=== PATIENT | female | born 1955 | race Caucasian/White ===

== ENCOUNTER 2021-11-17 09:39 | Inpatient (IN) ==
--- NOTE | 2021-11-17 10:30 | XRay Report ---
XR chest 1V portable CLINICAL HISTORY: cough, sob TECHNIQUE: Single frontal radiograph of the chest was obtained. Comparison: Comparison is made to chest radiograph 11/09/2021 FINDINGS: No lines and tubes are seen. The cardiomediastinal silhouette is normal. Faint airspace opacities are in the left lower lung. No evidence of pleural effusion or pneumothorax. IMPRESSION: Faint airspace opacities in the left lower lung, new from prior exam, may represent atelectasis, pneu monia, and/or aspiration. ACT 112: Negative or not required by law. Electronically signed by: Mich Raymond M.D. 11/17/2021 10:28 AM
[2021-11-17 11:00] LABS: Basophils # (auto) 0.01 K/uL (0-0.2); Basophils % (auto) 0.3 %; Eosinophils # (auto) 0.01 K/uL (0-0.5); Eosinophils % (auto) 0.3 %; Hematocrit (blood only) 31.3 % (37-47); Immature Granulocytes # (auto) 0.02 K/uL (0.00-0.02); Immature Granulocytes % (auto) 0.6 %; Lymphocytes # (auto) 0.24 K/uL (1.2-3.4); Lymphocytes % (auto) 6.7 %; Mean Corpuscular Hemoglobin 34.4 pg (25-34); Mean Corpuscular Hgb Conc 35.1 g/dL (32-36); Mean Corpuscular Volume 97.8 fL (80-100); Mean Platelet Volume 10.2 fL (7.4-10.4); Monocytes # (auto) 0.17 K/uL (0.11-0.59); Monocytes % (auto) 4.8 %; Neutrophils # (auto) 3.11 K/uL (1.4-6.5); Neutrophils % (auto) 87.3 %; Platelet Count 191 K/uL (130-400); RDW Coefficient of Variation 14.6 % (11.5-14.5); RDW Standard Deviation 52.1 fL (36.4-46.3); White Blood Count 3.56 K/uL (4.8-10.8)
[2021-11-17 11:13] LABS: D Dimer 3080 ug/L FEU (0-500)
[2021-11-17 11:30] LABS: Influenza A virus by PCR Negative (Neg); Influenza B virus by PCR Negative (Neg); RSV by PCR Negative (Neg); SARS CoV2 RNA(COVID-19) InHosp NEGATIVE (Negative)
[2021-11-17 11:33] LABS: Albumin Globulin Ratio 0.8 (0.9-2); Albumin Level 3.4 gm/dl (3.4-5.0); Bilirubin,Total 0.6 mg/dl (0.2-1.0); Calcium 8.6 mg/dl (8.5-10.1); Globulin 4.2 gm/dl (2.5-4.0); Total Protein 7.6 gm/dl (6.0-8.3)
[2021-11-17] MEDS ORDERED: SODIUM CHLORIDE 0.9% 1000ML 1,000 ML IV ONE (11:38)
--- NOTE | 2021-11-17 11:45 | Emergency Department Note ---
History of Present Illness General Chief complaint: Shortness of Breath/Dyspnea Stated complaint: SOB, NO APPETITE, TIREDNESS Time Seen by Provider: 11/17/21 09:53 Source: patient Mode of arrival: ambulatory Limitations: no limitations History of Present Illness Maximum Pain Intensity: 8 This patient is a 66-year-old female who presents to the emergency department for evaluation of multiple symptoms. Patient states that she has metastatic breast cancer and is currently undergoing chemotherapy. She completed a course of radiation about 2 weeks ago. Patient is having symptoms that she feels may be side effects of one of her chemotherapy medications. She reports cough, fevers, pain in the left side of her back/chest, shortness of breath and feeling fatigued. She is unable to tell me when the symptoms started, just states it was "after radiation." She states it does hurt to take a deep breath. She rat es her discomfort an 8/10. She has been vaccinated for COVID-19 and denies any recent sick contacts. She denies any abdominal pain or vomiting. Home Medications Medication Instructions Recorded Confirmed Type amoxicillin 875 mg-potassium 1 tab PO BID #20 tab 11/09/21 11/17/21 Rx clavulanate 125 mg tablet Allergies Allergy/AdvReac Type Severity Reaction Status Date / Time No Known Allergies Allergy Unknown Verified 11/17/21 15:12 Past Med/Surg History Medical History Bilateral breast cancer left breast 2007 "different type of cancer currently in the Right breast" Breast cancer metastasized to bone pt unaware? 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 Heartburn Mnire's disease Osteoarthritis Vertigo hx Surgical History H/O right breast biopsy (~11/2020) positive ("different kind of cancer than the left breast") follows with [facility] History of colonoscopy Hx of adenoidectomy Hx of tonsillectomy S/P lumpectomy, left breast (~2007) with lymph node removal Family History Other Family history non-contributory No family history of adverse response to anesthesia Social History Smoking Status: Never smoker Tobacco Type: Cigarettes Age Started Using Tobacco: 34; Age Quit Using Tobacco: 65; packs per day: 0.05; Years Smoked: 21; Second Hand Exposure: Yes; Hx Alcohol Use: No Hx Substance Use: No Preferred Language: Malagasy Communication Ability: Effective Visual Impairment: No Limitations Hearing Ability: Hard of Hearing Cable Maintainer Required: No Beliefs That Will Affect Care: None marital status: Current Living Situation: Family current occupational status: retired current occupation: [employer] How many Children do You have: 3 Feels Safe at Home: Yes Childhood Exposure to Second-Hand Smoke: Yes Diet Comment: healthy choices caffeine: No during the past year weight has: decreased > 10 lbs Dental Care, Regularly: Yes Physical Activity Frequency: Daily Seatbelt Use: always Sunscreen Use: Yes Assistive Devices: Glasses Review of Systems A total of 10 systems reviewed and were otherwise negative Physical Exam Vital Signs Vital Signs - 24 hr 11/17/21 09:41 11/17/21 09:43 11/17/21 09:57 Temperature 36.5 C Temperature Source Oral Pulse Rate 100 H 101 H Pulse Rate [Apical] Pulse Rate from SpO2 Sensor 101 H Respiratory Rate 18 23 Blood Pressure 111/70 Blood Pressure [Right Arm] Blood Pressure Mean 83 Blood Pressure Mean [Right Arm] Pulse Oximetry 97 95 Oxygen Delivery Method Room Air Room Air Sepsis Recent Fever Within 48 Hours Yes Sepsis New/Unexplained Change in Mental Status N/A Sepsis Action Taken by Nursing No Action Required 11/17/21 10:00 11/17/21 10:03 11/17/21 10:10 Temperature Temperature Source Pulse Rate 92 H 99 H 92 H Pulse Rate [Apical] Pulse Rate from SpO2 Sensor 92 H 98 H 92 H Respiratory Rate 21 14 16 Blood Pressure 119/72 Blood Pressure [Right Arm] Blood Pressure Mean 87 Blood Pressure Mean [Right Arm] Pulse Oximetry 94 94 97 Oxygen Delivery Method Sepsis Recent Fever Within 48 Hours Sepsis New/Unexplained Change in Mental Status Sepsis Action Taken by Nursing 11/17/21 10:20 11/17/21 10:30 11/17/21 10:40 Temperature Temperature Source Pulse Rate 93 H 92 H 88 Pulse Rate [Apical] Pulse Rate from SpO2 Sensor 92 H 92 H 88 Respiratory Rate 23 20 23 Blood Pressure 112/75 Blood Pressure [Right Arm] Blood Pressure Mean 87 Blood Pressure Mean [Right Arm] Pulse Oximetry 96 97 95 Oxygen Delivery Method Sepsis Recent Fever Within 48 Hours Sepsis New/Unexplained Change in Mental Status Sepsis Action Taken by Nursing 11/17/21 10:50 11/17/21 11:00 11/17/21 11:10 Temperature Temperature Source Pulse Rate 82 82 82 Pulse Rate [Apical] Pulse Rate from SpO2 Sensor 82 81 82 Respiratory Rate 21 19 21 Blood Pressure 111/65 Blood Pressure [Right Arm] Blood Pressure Mean 80 Blood Pressure Mean [Right Arm] Pulse Oximetry 95 96 96 Oxygen Delivery Method Sepsis Recent Fever Within 48 Hours Sepsis New/Unexplained Change in Mental Status Sepsis Action Taken by Nursing 11/17/21 11:20 11/17/21 11:30 11/17/21 11:40 Temperature Temperature Source Pulse Rate 79 83 80 Pulse Rate [Apical] Pulse Rate from SpO2 Sensor 79 83 80 Respiratory Rate 19 20 19 Blood Pressure 108/73 Blood Pressure [Right Arm] Blood Pressure Mean 84 Blood Pressure Mean [Right Arm] Pulse Oximetry 96 96 97 Oxygen Delivery Method Sepsis Recent Fever Within 48 Hours Sepsis New/Unexplained Change in Mental Status Sepsis Action Taken by Nursing 11/17/21 11:50 11/17/21 12:00 11/17/21 12:10 Temperature Temperature Source Pulse Rate 76 83 80 Pulse Rate [Apical] Pulse Rate from SpO2 Sensor 76 83 79 Respiratory Rate 21 19 15 Blood Pressure 120/72 Blood Pressure [Right Arm] Blood Pressure Mean 88 Blood Pressure Mean [Right Arm] Pulse Oximetry 97 96 99 Oxygen Delivery Method Sepsis Recent Fever Within 48 Hours Sepsis New/Unexplained Change in Mental Status Sepsis Action Taken by Nursing 11/17/21 12:20 11/17/21 13:27 11/17/21 13:28 Temperature Temperature Source Pulse Rate 81 85 Pulse Rate [Apical] Pulse Rate from SpO2 Sensor 80 90 85 Respiratory Rate 17 Blood Pressure 120/66 Blood Pressure [Right Arm] Blood Pressure Mean 84 Blood Pressure Mean [Right Arm] Pulse Oximetry 100 99 99 Oxygen Delivery Method Sepsis Recent Fever Within 48 Hours Sepsis New/Unexplained Change in Mental Status Sepsis Action Taken by Nursing 11/17/21 13:30 11/17/21 13:40 11/17/21 13:50 Temperature Temperature Source Pulse Rate 86 86 83 Pulse Rate [Apical] Pulse Rate from SpO2 Sensor 86 87 84 Respiratory Rate 22 15 19 Blood Pressure 121/84 Blood Pressure [Right Arm] Blood Pressure Mean 96 Blood Pressure Mean [Right Arm] Pulse Oximetry 98 99 99 Oxygen Delivery Method Sepsis Recent Fever Within 48 Hours Sepsis New/Unexplained Change in Mental Status Sepsis Action Taken by Nursing 11/17/21 13:58 11/17/21 14:00 11/17/21 14:10 Temperature Temperature Source Pulse Rate 83 83 Pulse Rate [Apical] 80 Pulse Rate from SpO2 Sensor 83 82 Respiratory Rate 22 22 28 H Blood Pressure 117/75 Blood Pressure [Right Arm] 121/84 Blood Pressure Mean 89 Blood Pressure Mean [Right Arm] 96 Pulse Oximetry 99 99 99 Oxygen Delivery Method Room Air Sepsis Recent Fever Within 48 Hours Sepsis New/Unexplained Change in Mental Status Sepsis Action Taken by Nursing 11/17/21 14:20 Temperature Temperature Source Pulse Rate 84 Pulse Rate [Apical] Pulse Rate from SpO2 Sensor 83 Respiratory Rate 13 Blood Pressure Blood Pressure [Right Arm] Blood Pressure Mean Blood Pressure Mean [Right Arm] Pulse Oximetry 97 Oxygen Delivery Method Sepsis Recent Fever Within 48 Hours Sepsis New/Unexplained Change in Mental Status Sepsis Action Taken by Nursing VITALS: Vitals are noted on the nurse's note and reviewed by myself. GENERAL: This is a 66-year-old female, in no acute distress, well-developed well-nourished. SKIN: The skin was without rashes. EARS: External auditory canals clear, tympanic membranes pearly fisher without erythema or effusion bilaterally. EYES: Pupils equal round and reactive to light and accommodation. MOUTH: Mucous membranes moist. Tonsils are not enlarged. Pharynx without erythema or exudate. NECK: Supple without nuchal rigidity. No lymphadenopathy. HEART: Regular rate and rhythm without murmurs gallops or rubs. LUNGS: Clear to auscultation bilaterally without wheezes, rales or rhonchi. No retractions or accessory muscle use. ABDOMEN: Positive bowel sounds x 4. Soft, nontender to palpation. NEURO: Patient was alert and oriented to person place and time. Course Administered Medications Discontinued Medications Sodium Chloride (Nss 1000ml) 1,000 mls @ 999 mls/hr IV .Q1H1M ONE Stop: 11/17/21 12:38 Last Admin: 11/17/21 12:15 Dose: 999 mls/hr Documented by: [id number] Cefepime HCl (Maxipime) 2,000 mg in 20 mls @ 5 mls/min IV NOW STA; Protocol Stop: 11/17/21 13:54 Last Admin: 11/17/21 14:00 Dose: 5 mls/min Documented by: [id number] Ioversol (Optiray 320 125ml) 118 ml IV ONCE ONE Stop: 11/17/21 12:34 Last Admin: 11/17/21 12:36 Dose: 118 ml Documented by: [id number] Metronidazole (Metronidazole 500 Mg Tab) 500 mg PO NOW STA Stop: 11/17/21 13:52 Last Admin: 11/17/21 14:00 Dose: 500 mg Documented by: [id number] Medical Decision Making Differential Diagnosis Cardiac ischemia, aortic dissection, pulmonary embolism, pneumothorax, pneumonia, pericarditis, myocarditis, esophageal rupture, GERD, cholecystitis, pancreatitis, musculoskeletal, as well as other pathologies. Home Medications Current Medication List: was personally reviewed by me Laboratory Data Attestation: I reviewed the patient's lab results. Result diagrams: 11/17/21 10:05 11/17/21 10:05 Lab Results 11/17/21 11/17/21 11/17/21 Range/Units 10:05 10:05 10:05 WBC 3.56 L (4.8-10.8) K/uL RBC 3.20 L (4.2-5.4) M/uL Hgb 11.0 L (12.0-16.0) g/dL Hct 31.3 L (37-47) % MCV 97.8 (80-100) fL MCH 34.4 H (25-34) pg MCHC 35.1 (32-36) g/dL RDW Std Deviation 52.1 H (36.4-46.3) fL RDW Coeff of Royer 14.6 H (11.5-14.5) % Plt Count 191 (130-400) K/uL MPV 10.2 (7.4-10.4) fL Immature Gran % (Auto) 0.6 % Neut % (Auto) 87.3 % Lymph % (Auto) 6.7 % [place] % (Auto) 4.8 % Eos % (Auto) 0.3 % Baso % (Auto) 0.3 % Neut # (Auto) 3.11 (1.4-6.5) K/uL Lymph # (Auto) 0.24 L (1.2-3.4) K/uL [place] # (Auto) 0.17 (0.11-0.59) K/uL Eos # (Auto) 0.01 (0-0.5) K/uL Baso # (Auto) 0.01 (0-0.2) K/uL Immature Gran # (Auto) 0.02 (0.00-0.02) K/uL D-Dimer 3080 H* (0-500) ug/L FEU Sodium (136-145) mmol/L Potassium (3.5-5.1) mmol/L Chloride (98-107) mmol/L Carbon Dioxide (21-32) mmol/L Anion Gap (3-11) BUN (6-23) mg/dl Creatinine (0.6-1.2) mg/dl Est Cr Clr Drug Dosing ml/min Est GFR ( Amer) ml/min Est GFR (Non-Af Amer) ml/min BUN/Creatinine Ratio (10-20) Glucose (70-99(Fasting)) mg/dl Calcium (8.5-10.1) mg/dl Total Bilirubin (0.2-1.0) mg/dl AST (13-39) U/L ALT (7-52) U/L Alkaline Phosphatase (34-104) U/L Troponin I High Sens 6.2 (0-14) pg/ml Total Protein (6.0-8.3) gm/dl Albumin (3.4-5.0) gm/dl Globulin (2.5-4.0) gm/dl Albumin/Globulin Ratio (0.9-2) SARS-CoV-2 (PCR) (Negative) Influenza Type A (PCR) (Neg) Influenza Type B (PCR) (Neg) RSV (RT-PCR) (Neg) 11/17/21 11/17/21 Range/Units 10:05 10:10 WBC (4.8-10.8) K/uL RBC (4.2-5.4) M/uL Hgb (12.0-16.0) g/dL Hct (37-47) % MCV (80-100) fL MCH (25-34) pg MCHC (32-36) g/dL RDW Std Deviation (36.4-46.3) fL RDW Coeff of Royer (11.5-14.5) % Plt Count (130-400) K/uL MPV (7.4-10.4) fL Immature Gran % (Auto) % Neut % (Auto) % Lymph % (Auto) % [place] % (Auto) % Eos % (Auto) % Baso % (Auto) % Neut # (Auto) (1.4-6.5) K/uL Lymph # (Auto) (1.2-3.4) K/uL [place] # (Auto) (0.11-0.59) K/uL Eos # (Auto) (0-0.5) K/uL Baso # (Auto) (0-0.2) K/uL Immature Gran # (Auto) (0.00-0.02) K/uL D-Dimer (0-500) ug/L FEU Sodium 133 L (136-145) mmol/L Potassium 3.0 L (3.5-5.1) mmol/L Chloride 97 L (98-107) mmol/L Carbon Dioxide 25 (21-32) mmol/L Anion Gap 11 (3-11) BUN 15 (6-23) mg/dl Creatinine 0.80 (0.6-1.2) mg/dl Est Cr Clr Drug Dosing 55.8 ml/min Est GFR ( Amer) 87.8 ml/min Est GFR (Non-Af Amer) 75.8 ml/min BUN/Creatinine Ratio 18.8 (10-20) Glucose 158 H (70-99(Fasting)) mg/dl Calcium 8.6 (8.5-10.1) mg/dl Total Bilirubin 0.6 (0.2-1.0) mg/dl AST 44 H (13-39) U/L ALT 50 (7-52) U/L Alkaline Phosphatase 86 (34-104) U/L Troponin I High Sens (0-14) pg/ml Total Protein 7.6 (6.0-8.3) gm/dl Albumin 3.4 (3.4-5.0) gm/dl Globulin 4.2 H (2.5-4.0) gm/dl Albumin/Globulin Ratio 0.8 L (0.9-2) SARS-CoV-2 (PCR) NEGATIVE (Negative) Influenza Type A (PCR) Negative (Neg) Influenza Type B (PCR) Negative (Neg) RSV (RT-PCR) Negative (Neg) Imaging Data Attestation: I personally reviewed and interpreted this imaging study as follows: Radiologist's Impression: Chest X-Ray 11/17/21 10:16 XR chest 1V portable CLINICAL HISTORY: cough, sob TECHNIQUE: Single frontal radiograph of the chest was obtained. Comparison: Comparison is made to chest radiograph 11/09/2021 FINDINGS: No lines and tubes are seen. The cardiomediastinal silhouette is normal. Faint airspace opacities are in the left lower lung. No evidence of pleural effusion or pneumothorax. IMPRESSION: Faint airspace opacities in the left lower lung, new from prior exam, may represent atelectasis, pneumonia, and/or aspiration. ACT 112: Negative or not required by law. Electronically signed by: Mich Raymond M.D. 11/17/2021 10:28 AM Chest CTA 11/17/21 11:16 CT angio chest PE protocol CLINICAL HISTORY: left chest pain, breast ca, elevated dimer TECHNIQUE: Multidetector row helical CT of the chest was performed with angiographic protocol. Coronal and sagittal reformations were obtained. Coronal and sagittal MIPS were obtained from the axial data set and were submitted for review. Automated dose lowering techniques and/or adjustment according to patient size were utilized for this exam. CT DOSE: 256.04 mGy.cm Comparison: Comparison is made to chest 01/28/2021 FINDINGS: Lungs and pleura: Consolidation is seen in the left lower lobe. Heart and pericardium: Heart size is normal. No pericardial effusion. Vessels: No evidence of pulmonary embolism. Mediastinum and amado: Unremarkable. Chest wall and lower neck: Mild soft tissue stranding is seen in the right axilla which is unchanged from prior exam, nonspecific. Post surgical changes are noted in the left breast. Abdomen: Splenic calcifications are seen. Mild thickening of the left adrenal gland is again noted. Bones: Numerous sclerotic foci are seen in the skeleton, similar in appearance to prior exam. IMPRESSION: Right lower lobe consolidations are favored to represent aspiration or pneumonia with or without superimposed atelectasis. No evidence of pulmonary embolus is seen. ACT 112: Negative or not required by law. Electronically signed by: Mich Raymond M.D. 11/17/2021 12:44 PM MDM Narrative Continuous groundwater monitoring technician: Order was placed for continuous groundwater monitoring technician. Patient was placed on the groundwater monitoring technician. Patient was noted to be in normal sinus rhythm at an initial rate of 84 bpm. The patient is a 66-year-old female who presents today complaining of cough and flulike symptoms. Labs revealed no leukocytosis. Chest x-ray showed evidence o f pneumonia. D-dimer was found to be elevated. CT angiogram of the chest was performed and confirmed left lower lobe pneumonia with no PE seen. As patient has been on Augmentin for 8 days already, I am concerned that she will need more broad-spectrum treatment. Additionally she has been having some weakness and difficulty eating. She was given cefepime and Flagyl. The case was discussed with the [facility] service, who agreed to evaluate the patient for further care. Impression & Plan Pneumonia Discharge Plan Visit Data Chief Complaint: Shortness of Breath/Dyspnea Stated Complaint: SOB, NO APPETITE, TIREDNESS ED Provider: Manny Maradiaga ED Midlevel Provider: Karol Suarez Discharge Problem: Pneumonia Forms Stand Alone Forms: [facility] Prescriptions Prescriptions: No Action amoxicillin-pot clavulanate 875-125 mg tablet 1 tab PO BID Qty: 20 RF: 0 Referrals Referrals: Jan Chavez DO [Primary Care Provider] -
[2021-11-17 12:20] LABS: BUN Creatinine Ratio 18.8 (10-20); Creatinine Clr Calc Pharmacy 55.8 ml/min; Est GFR (African American) 87.8 ml/min; Est GFR (Non-African American) 75.8 ml/min
[2021-11-17] MEDS ORDERED: OPTIRAY 320 125ml IV ONE (12:33)
--- NOTE | 2021-11-17 12:47 | CT Scan Report ---
CT angio chest PE protocol CLINICAL HISTORY: left chest pain, breast ca, elevated dimer TECHNIQUE: Multidetector row helical CT of the chest was performed with angiographic protocol. Duarte l and sagittal reformations were obtained. Coronal and sagittal MIPS were obtained from the axial kaela a set and were submitted for review. Automated dose lowering techniques and/or adjustment according to patient size were utilized for this exam. CT DOSE: 256.04 mGy.cm Comparison: Comparison is made to chest 01/28/2021 FINDINGS: Lungs and pleura: Consolidation is seen in the left lower lobe. Heart and pericardium: Heart size is normal. No pericardial effusion. Vessels: No evidence of pulmonary embolism. Mediastinum and amado: Unremarkable. Chest wall and lower neck: Mild soft tissue stranding is seen in the right axilla which is unchanged from prior exam, nonspecific. Post surgical changes are noted in the left breast. Abdomen: Splenic calcifications are seen. Mild thickening of the left adrenal gland is again noted. Bones: Numerous sclerotic foci are seen in the skeleton, similar in appearance to prior exam. IMPRESSION: Right lower lobe consolidations are favored to represent aspiration or pneumonia with or without supe rimposed atelectasis. No evidence of pulmonary embolus is seen. ACT 112: Negative or not required by law. Electronically signed by: Mich Raymond M.D. 11/17/2021 12:44 PM
--- NOTE | 2021-11-17 13:50 | Emergency Department Note ---
ED Visit Note I have personally evaluated this patient examined her and reviewed the pertinent labs and data. I have discussed the case with Karol Suarez, the physician assistant site manager and agree with the plan. Please refer to the PA note. This patient has a cough and she is immunocompromised with recent chemo she is also finishing Augmentin for recent sinus infection seen on CT she has no significant headache at present and looks well given the fact that she has cancer and has respiratory symptoms we did a CTA and there is no PE she does have a pneumonia. Given the fact that she is immunocompromised, I do think she needs to be admitted for IV antibiotics and we have consulted hospitalist for these measures. She is not hypoxemic. .
[2021-11-17] MEDS ORDERED: CEFEPIME 2,000 MG/20 ML VIAL IV STA (13:51)
[2021-11-17] MEDS ORDERED: metroNIDAZOLE 500 MG TAB PO STA (13:51)
--- NOTE | 2021-11-17 14:56 | History & Physical Report ---
Date of Service November 17, 2021 Assessment & Plan (1) Pneumonia: Plan: CT chest showed a LLL PNA which was not captured on CXR on 11/09 when she presented with fatigue, malaise, and loss of appetite. Had been taking Augmentin since 11/09. Denies overt aspiration when eating or drinking. - Procalcitonin elevated to 1.15 - Start Zosyn to cover Pseudomonas in additional to broad usual CAP coverage - Start azithromycin for atypicals. Notably, this is one group that was not previously covered by the Augmentin - MRSA swab ordered - DuoNebs PRN (2) Diarrhea: Plan: Was treated with radiation for a slow-growing breast cancer metastasis to the rectum. Prior to radiation was incontinent, but had formed stool. Patient now reports loose/watery diarrhea. - C. diff test ordered - If negative, can consider restarting Metamucil which patient stopped on her own and/or using Imodium PRN (3) Metastatic breast cancer: Plan: Follows with Dr. Stockton at [facility]. Stopped Ibrance 2 days prior to beginning radiation therapy for her rectal metastasis. Has not restarted it as she is not certain she wants to continue any active therapy for her cancer. - Palliative care consulted - Patient is aware of palliative care/hospice and is considering this idea. (4) DVT prophylaxis: Plan: High risk - Lovenox 40 mg SQ daily History of Present Illness Primary Care Provider: Jan Chavez, 66yo F w/ hx of metastatic breast cancer who presents with LLL PNA. The patient has been undergoing chemotherapy and radiation for her breast cancer. She is following with [facility] and was on Ibrance up to the time of her radiation for a rectal metastasis. She underwent her radiation therapy for 3 weeks. She believes that her last fraction was on October 29. She has not restarted her Ibrance. She reports that she just feels "off" and without an appetite. She reports that her appetite is low and she feels like her sense of smell is causing her to feel nauseated with any eating. She was in the ER on November 09 with similar symptoms and was given Augmentin. However, in the last 3 days, she feels she has actually felt worse with more shortness of breath and cough. She also notes that she had a fever to 100.7 at home which is new for her. She did not take her Augmentin today, but otherwise has been taking it faithfully. However, she has not been taking almost any of her other medications because she feels it is not helping her body Allergies Allergy/AdvReac Type Severity Reaction Status Date / Time No Known Allergies Allergy Unknown Verified 11/17/21 15:12 Home Medications Medication Instructions Recorded Confirmed Type amoxicillin 875 mg-potassium 1 tab PO BID #20 tab 11/09/21 11/17/21 Rx clavulanate 125 mg tablet Past Med/Surg History Medical History Bilateral breast cancer left breast 2007 "different type of cancer currently in the Right breast" Breast cancer metastasized to bone pt unaware? 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 Heartburn Mnire's disease Osteoarthritis Vertigo hx Surgical History H/O right breast biopsy (~11/2020) positive ("different kind of cancer than the left breast") [facility] History of colonoscopy Hx of adenoidectomy Hx of tonsillectomy S/P lumpectomy, left breast (~2007) with lymph node removal Family History Other Family history non-contributory No family history of adverse response to anesthesia Social History Smoking Status: Former smoker Tobacco Type: Cigarettes Age Started Using Tobacco: 34; Age Quit Using Tobacco: 65; packs per day: 0.05; Years Smoked: 21; Second Hand Exposure: Yes; Do You Dip or Chew Tobacco: No; Hx Alcohol Use: No Hx Substance Use: No Preferred Language: Cypriot Communication Ability: Effective Visual Impairment: No Limitations Hearing Ability: Hard of Hearing Stripper Soft Plastic Required: No Beliefs That Will Affect Care: None marital status: Current Living Situation: Family current occupational status: retired current occupation: [email or web address] How many Children do You have: 3 Other Information That Helps Us Care for You: No Feels Safe at Home: Yes Safety Concerns: Feels Safe At This Time Childhood Exposure to Second-Hand Smoke: Yes Diet Comment: healthy choices caffeine: No during the past year weight has: decreased > 10 lbs Dental Care, Regularly: Yes Physical Activity Frequency: Daily Seatbelt Use: always Sunscreen Use: Yes Assistive Devices: Glasses Review of Systems Review of Systems: All systems reviewed & are unremarkable except as noted in HPI & below Physical Exam Constitutional: WD/WN, vitals as above Eyes: EOM intact bilaterally; no conjunctival abnormality ENMT: external ear and nose normal, oropharynx normal Neck: trachea midline, no thyromegaly normal visual inspection Respiratory: normal respiratory effort, lungs clear to auscultation no respiratory distress Cardiovascular: RRR, no murmur, no edema Gastrointestinal (Abdomen): Inspection/Auscultation: abdomen normal to inspection; abdomen not distended Musculoskeletal: no cyanosis or clubbing, extremities motor strength 5/5 Skin: no rashes, warm and dry Neurologic: moves all extremities and awake Psychiatric: Orientation: alert, oriented to person and cooperative Results & Data Results & Data ([facility]) Vital Signs (Past 12 Hours) Vital Signs Temp Pulse Pulse Resp BP BP Pulse Ox 11/17/21 14:20 84 13 97 11/17/21 14:10 83 28 H 99 11/17/21 14:00 83 22 117/75 99 11/17/21 13:58 80 22 121/84 99 11/17/21 13:50 83 19 99 11/17/21 13:40 86 15 99 11/17/21 13:30 86 22 121/84 98 11/17/21 13:28 85 120/66 99 11/17/21 13:27 99 11/17/21 12:20 81 17 100 11/17/21 12:10 80 15 99 11/17/21 12:00 83 19 120/72 96 11/17/21 11:50 76 21 97 11/17/21 11:40 80 19 97 11/17/21 11:30 83 20 108/73 96 11/17/21 11:20 79 19 96 11/17/21 11:10 82 21 96 11/17/21 11:00 82 19 111/65 96 11/17/21 10:50 82 21 95 11/17/21 10:40 88 23 95 11/17/21 10:30 92 H 20 112/75 97 11/17/21 10:20 93 H 23 96 11/17/21 10:10 92 H 16 97 11/17/21 10:03 99 H 14 119/72 94 11/17/21 10:00 92 H 21 94 11/17/21 09:57 101 H 23 95 11/17/21 09:43 36.5 C 100 H 18 111/70 97 Code Status & VTE Plan VTE Prophylaxis Plan VTE Prophylaxis will be ordered: Yes PG Care Time/CCT Total # of Minutes Spent Total Time Spent with Patient: Total time spent is greater than 50% in coordination of care (as documented) at patient's floor/unit and/or counseling patient: Coding Level of Care Code 47109 Initial Inpt Care Lvl 3 Diagnoses Pneumonia J18.9 Diarrhea R19.7 Metastatic breast cancer C50.919 DVT prophylaxis Z29.9
[2021-11-17] MEDS: POTASSIUM CHLORIDE CRTAB 20 MEQ TABCR PO SCH (15:37)
[2021-11-17] MEDS ORDERED: ALBUT/IPRATROP 3MG/0.5MG NEB 3 ML VIAL NEB PRN (16:24)
[2021-11-17] MEDS ORDERED: ACETAMINOPHEN 325 MG TAB PO PRN (16:24)
[2021-11-17] MEDS: AZITHROMYCIN 500 MG in DEXTROSE 5% 250 ML IV SCH (17:08)
[2021-11-17] MEDS: SODIUM CHLORIDE 0.9% 1000ML 1,000 ML IV SCH (17:08)
[2021-11-17] MEDS: ENOXAPARIN INJ 40 MG/0.4 ML SYR SQ SCH (17:17)
[2021-11-17] MEDS ORDERED: ACETAMINOPHEN 1,000 MG/100 ML VIAL IV ONE (19:00)
[2021-11-17] MEDS ORDERED: PIPERACILLIN/TAZOBACTAM 3.375 GM in DEXTROSE 5% 100 ML IV ONE (20:00)
[2021-11-18] MEDS: PIPERACILLIN/TAZOBACTAM 3.375 GM in DEXTROSE 5% 100 ML IV SCH ×3 (01:34→17:25)
[2021-11-18] MEDS: POTASSIUM CHLORIDE CRTAB 20 MEQ TABCR PO SCH (01:34)
[2021-11-18] MEDS ORDERED: PIPERACILLIN/TAZOBACTAM 3.375 GM in DEXTROSE 5% 100 ML IV SCH (04:00)
[2021-11-18] MEDS: SODIUM CHLORIDE 0.9% 1000ML 1,000 ML IV SCH (05:38)
[2021-11-18] MEDS ORDERED: MoRPHine SULFATE 2 MG/ML CARP IV PRN (07:42)
[2021-11-18 09:06] LABS: Hematocrit (blood only) 26.9 % (37-47); Hemoglobin 9.2 g/dL (12.0-16.0); Mean Corpuscular Hemoglobin 33.3 pg (25-34); Mean Corpuscular Hgb Conc 34.2 g/dL (32-36); Mean Corpuscular Volume 97.5 fL (80-100); Mean Platelet Volume 9.7 fL (7.4-10.4); Platelet Count 182 K/uL (130-400); RDW Coefficient of Variation 14.7 % (11.5-14.5); RDW Standard Deviation 52.3 fL (36.4-46.3); Red Blood Count 2.76 M/uL (4.2-5.4); White Blood Count 2.41 K/uL (4.8-10.8)
[2021-11-18 09:31] LABS: BUN Creatinine Ratio 12.1 (10-20); Calcium 7.8 mg/dl (8.5-10.1); Creatinine Clr Calc Pharmacy 76.9 ml/min; Est GFR (African American) 109.8 ml/min; Est GFR (Non-African American) 94.7 ml/min; Magnesium 2.2 mg/dl (1.7-2.4); Potassium 4.2 mmol/L (3.5-5.1)
[2021-11-18] MEDS: D5NSS + 20MEQ KCL 20 MEQ/1,000 ML BAG IV SCH (09:45)
[2021-11-18] MEDS: ONDANSETRON INJ 2 MG/ML 2 ML VIAL IV PRN (10:02)
[2021-11-18] MEDS: PSYLLIUM or GUAR GUM FIBER POWDER PACKET PO SCH ×2 (10:26→21:26)
--- NOTE | 2021-11-18 10:43 | Hospitalist Progress Note ---
Date of Service November 18, 2021 Assessment & Plan (1) Pneumonia: Plan: CT chest showed a LLL PNA which was not captured on CXR on 11/09 when she presented with fatigue, malaise, and loss of appetite. Had been taking Augmentin since 11/09. Denies overt aspiration when eating or drinking. - Procalcitonin elevated to 1.15 -Now on Zosyn to cover Pseudomonas in additional to broad usual CAP coverage -Now on azithromycin for atypicals. Notably, this is one group that was not previously covered by the Augmentin - MRSA swab ordered - DuoNebs PRN. Serial chest x-ray until clear (2) Diarrhea: Plan: Was treated with radiation for a slow-growing breast cancer metastasis to the rectum. Prior to radiation was incontinent, but had formed stool. Patient now reports loose/watery diarrhea. - C. diff test ordered -Metamucil twice daily scheduled to add bulk. Avoid milk products for now (3) Metastatic breast cancer: Plan: Follows with Dr. Stockton at [facility]. Stopped Ibrance 2 days prior to beginning radiation therapy for her rectal metastasis. Has not restarted it as she is not certain she wants to continue any active therapy for her cancer. - Palliative care consulted - Patient is aware of palliative care/hospice and is considering this idea. Dronabinol ordered for nausea and anorexia (4) DVT prophylaxis: Plan: High risk patient - Lovenox 40 mg SQ daily (5) Hypokalemia: Plan: IV replacement. Serial labs Plan: Anticipate eventual discharge to home Admission and Anticipated Discharge Date Admission Date: November 17, 2021 Subjective Alert and oriented. No distress. She agrees to restarting Metamucil and a trial of Marinol for her anorexia and nausea which are related to her chemotherapy and underlying malignancy. Continue IV fluids for now. She remains on Zosyn and azithromycin for left lower lobe pneumonia. Potassium replacement underway. Review of Systems Review of Systems: Constitutional-no fever or chills ENT-no blurred vision, no double vision, no epistaxis, no sore throat Respiratory-no cough, no wheezing, no shortness of breath Cardiac-no palpitations, no chest pain, no syncope GI-persistent nausea and anorexia. No vomiting, diarrhea, melena, hematochezia -no urinary retention, no urinary incontinence, no dysuria, no hematuria Musculoskeletal-no joint pain, no muscle tenderness. Pain in left T6 dermatome but no overt zoster at this time. Skin-no bruising, no rashes, no pruritus Neuro-no isolated weakness, no paresthesia, no weakness Psych-no depression, no anxiety Physical Exam Physical Exam: General-alert and oriented x3, no fevers, no chills HEENT-head atraumatic and normocephalic, TMs intact bilaterally, pupils equal and reactive to light, extraocular muscles intact Neck-no lymphadenopathy or thyromegaly, trachea midline Chest-clear to auscultation percussion. No rales wheezing or rhonchi. Left T6 dermatome tenderness but no overt zoster at this time Cardiac-regular rate and rhythm, normal S1 and S2 Abdomen-normal bowel sounds, nontender, no hepatosplenomegaly Extremities-no cyanosis, clubbing, or edema Neuro-cranial nerves II through XII intact, motor and sensory function within normal limits, strength symmetrical , no focal deficits Psych-normal affect, normal mood Results & Data Results & Data ([facility]) Vital Signs (Past 12 Hours) Vital Signs Temp Pulse Resp BP Pulse Ox 11/18/21 07:58 36.6 C 85 16 105/65 97 Laboratory Results 11/18/21 08:46 11/18/21 08:46 PG Care Time/CCT Total # of Minutes Spent Total Time Spent with Patient: Total time spent is greater than 50% in coordination of care (as documented) at patient's floor/unit and/or counseling patient: Coding Level of Care Code 50700 Subseq Hosp Care Lvl 3 Diagnoses Pneumonia J18.9 Diarrhea R19.7 Metastatic breast cancer C50.919 DVT prophylaxis Z29.9 Hypokalemia E87.6
[2021-11-18] MEDS: ACETAMINOPHEN 1,000 MG/100 ML VIAL IV PRN ×2 (11:52→21:34)
[2021-11-18] MEDS: AZITHROMYCIN 500 MG in DEXTROSE 5% 250 ML IV SCH (17:23)
[2021-11-18] MEDS: ENOXAPARIN INJ 40 MG/0.4 ML SYR SQ SCH (17:33)
[2021-11-19] MEDS: D5NSS + 20MEQ KCL 20 MEQ/1,000 ML BAG IV SCH ×2 (01:00→14:42)
[2021-11-19] MEDS: PIPERACILLIN/TAZOBACTAM 3.375 GM in DEXTROSE 5% 100 ML IV SCH ×3 (01:02→18:35)
[2021-11-19 06:08] LABS: Hematocrit (blood only) 25.9 % (37-47); Hemoglobin 8.7 g/dL (12.0-16.0); Mean Corpuscular Hemoglobin 33.6 pg (25-34); Mean Corpuscular Hgb Conc 33.6 g/dL (32-36); Mean Platelet Volume 9.7 fL (7.4-10.4); Platelet Count 183 K/uL (130-400); RDW Coefficient of Variation 15.1 % (11.5-14.5); RDW Standard Deviation 55.5 fL (36.4-46.3); Red Blood Count 2.59 M/uL (4.2-5.4); White Blood Count 1.61 K/uL (4.8-10.8)
[2021-11-19 06:14] LABS: BUN Creatinine Ratio 7.1 (10-20); Calcium 7.4 mg/dl (8.5-10.1); Creatinine Clr Calc Pharmacy 79.7 ml/min; Est GFR (Non-African American) 95.8 ml/min; Potassium 4.3 mmol/L (3.5-5.1)
[2021-11-19] MEDS: ONDANSETRON INJ 2 MG/ML 2 ML VIAL IV PRN ×2 (06:36→19:06)
[2021-11-19 07:01] LABS: Basophils # (auto) 0.01 K/uL (0-0.2); Basophils % (auto) 0.6 %; Eosinophils # (auto) 0.03 K/uL (0-0.5); Eosinophils % (auto) 1.9 %; Lymphocytes # (auto) 0.39 K/uL (1.2-3.4); Lymphocytes % (auto) 24.2 %; Monocytes # (auto) 0.19 K/uL (0.11-0.59); Monocytes % (auto) 11.8 %; Neutrophils # (auto) 0.99 K/uL (1.4-6.5); Neutrophils % (auto) 61.5 %
[2021-11-19] MEDS: ACETAMINOPHEN 1,000 MG/100 ML VIAL IV PRN (07:32)
[2021-11-19] MEDS: PSYLLIUM or GUAR GUM FIBER POWDER PACKET PO SCH ×2 (08:29→20:23)
--- NOTE | 2021-11-19 08:48 | Hospitalist Progress Note ---
Date of Service November 19, 2021 Assessment & Plan (1) Pneumonia: Plan: Cultures, continue current antibiotics; nasal MRSA; urinary Legionella (2) Diarrhea: Plan: C. difficile negative; supportive care (3) Metastatic breast cancer: Plan: Follows with Dr. Stockton at [facility]. Stopped Ibrance 2 days prior to beginning radiation therapy for her rectal metastasis. Has not restarted it as she is not certain she wants to continue any active therapy for her cancer. - Palliative care consulted - Patient is aware of palliative care/hospice and is considering this idea. Dronabinol ordered for nausea and anorexia (4) DVT prophylaxis: Plan: High risk patient - Lovenox 40 mg SQ daily (5) Cytopenia: Plan: Noted leukopenia, anemiafollow at present Plan: Anticipate eventual discharge to home Admission and Anticipated Discharge Date Admission Date: November 17, 2021 Subjective Follow-up presentation with general ill healthdoing better Physical Exam Physical Exam: Constitutional and general: No acute distress, looks biologic age Head and face: No puffiness, atraumatic Eyes: No scleral icterus, extraocular movements normal Neck: Supple, no JVD Musculoskeletal: No acute joint swelling, no bony abnormalities Skin/dermatologic/integument: No rash, no purpura Hematologic and lymphatic: pallor +, no petechia Gastrointestinal/abdomen: Nondistended, soft, nonacute Neurologic: Cranial nerves intact, nonfocal Psychiatry: Awake, alert, pleasant, communicative Cardiovascular: Heart rhythm regular, no rub, no murmur, no gallop Respiratory: Chest movements equal, no use of accessory muscles, no adventitious sounds Extremities: No edema, no cyanosis Results & Data Results & Data ([facility]) Vital Signs (Past 12 Hours) Vital Signs Temp Pulse Resp BP Pulse Ox 11/19/21 07:08 36.3 C L 95 H 18 95/63 L 100 11/18/21 21:36 36.5 C 81 16 96/65 L 98 PG Care Time/CCT Total # of Minutes Spent Total Time Spent with Patient: Total time spent is greater than 50% in coordination of care (as documented) at patient's floor/unit and/or counseling patient: Coding Level of Care Code 98512 Subseq Hosp Care Lvl 2 Diagnoses Pneumonia J18.9 Diarrhea R19.7 Metastatic breast cancer C50.919 DVT prophylaxis Z29.9 Cytopenia D75.9
--- NOTE | 2021-11-19 12:32 | Palliative Care Consultation ---
Date of Consultation November 19, 2021 Assessment & Plan (1) Pain: No complaints of pain related to bone metastases. Back pain related to pneumonia improving. (2) Dysgeusia: Possibly related to cancer treatment. Discussed bland diet and experimenting with different tastes and textures. (3) Diarrhea: Improved with metamucil. Encouraged fluid intake. Discussed with Dr. Marrero, add probiotic. (4) Palliative care encounter: Lesia is concerned that the affect of cancer treatment on her quality of life outweighs the potential benefit. She understands that she has Stage IV cancer and that treatment goal is not cure. In general, she feels well and has been independent at home. 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 She feels that she would prefer to stop treatment and focus on living as well as she can for her remaining days. I asked her if she had fears or worries about her dying time. She is hopeful that her with be peaceful and comfortable. She has done a lot of planning in terms of insurance and burial arrangements. She does not have a living will or advance directive but tells me that she has the paperwork at home to do that. She is living with her youngest son and has grandchildren at home. She feels that she would not want to at home and would prefer to be in a SNF for her dying ti me. She did note that there might be some disagreement among her family and I encouraged her to discuss her wishes with her family. She tells me that her oldest son, Luis Tejada, is her POA and she feels that he would be objective and follow through with her wishes. We talked about her code status as full code which is not consistent with her plan to stop treatment and goal for a comfortable . She tells me that she agreed to full code for this admission with the idea that if it would help her return to a meaningful life, she would be agreeable but overall, she would not want life prolonging measures. (5) Metastatic breast cancer: History of Present Illness Reason for Consultation: goals of care Requesting Physician: Dr. Chavez Attending Physician: Ari Perales MD History of Present Illness 66 yo lady who was initially diagnosed with triple negative breast cancer. She has since been diagnosed one year ago with a new primary right breast cancer ER+, [place] -, Her2-. This is metastatic to skin and multiple bone lesions. She also was found to have a metastatic anal lesion. She just completed radiation therapy for this lesion. She has had hormonal and immunotherapy, most recently on ibrance prior to radiation treatment. She is admitted with LLL pneumonia and has had pain in her upper back. She is reluctant to take a lot of medications a nd has been taking tylenol for this which is effective. She feels that the pain is improving. She denies other pain. She complains of nausea which is really more of a taste issue. She notes that everything tastes sour when she eats. She denies emesis or abdominal discomfort after eating. She denies sore throat, dry mouth, difficulty swallowing. She has been incontinent of loose stools and was tested for Cdiff. Allergies Allergy/AdvReac Type Severity Reaction Status Date / Time No Known Allergies Allergy Unknown Verified 11/17/21 15:12 Home Medications Medication Instructions Recorded Confirmed Type amoxicillin 875 mg-potassium 1 tab PO BID #20 tab 11/09/21 11/17/21 Rx clavulanate 125 mg tablet Patient History Medical History Bilateral breast cancer left breast 2007 "different type of cancer currently in the Right breast" Breast cancer metastasized to bone pt unaware? 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 Heartburn Mnire's disease Osteoarthritis Vertigo hx Surgical History H/O right breast biopsy (~11/2020) positive ("different kind of cancer than the left breast") [facility] History of colonoscopy Hx of adenoidectomy Hx of tonsillectomy S/P lumpectomy, left breast (~2007) with lymph node removal Family History Other Family history non-contributory No family history of adverse response to anesthesia Social History Smoking Status: Former smoker Tobacco Type: Cigarettes Age Started Using Tobacco: 34; Age Quit Using Tobacco: 65; packs per day: 0.05; Years Smoked: 21; Second Hand Exposure: Yes; Do You Dip or Chew Tobacco: No; Hx Alcohol Use: No Hx Substance Use: No Preferred Language: Swedish Communication Ability: Effective Visual Impairment: No Limitations Hearing Ability: Hard of Hearing Electronic Masking System Operator Required: No Beliefs That Will Affect Care: None marital status: Current Living Situation: Family current occupational status: retired current occupation: [employer] How many Children do You have: 3 Other Information That Helps Us Care for You: No Feels Safe at Home: Yes Safety Concerns: Feels Safe At This Time Childhood Exposure to Second-Hand Smoke: Yes Diet Comment: healthy choices caffeine: No during the past year weight has: decreased > 10 lbs Dental Care, Regularly: Yes Physical Activity Frequency: Daily Seatbelt Use: always Sunscreen Use: Yes Assistive Devices: Glasses Review of Systems Review of Systems: ESAS Pain 0/3 Dyspnea 0/3 Nausea 0/3 Anorexia 1/3 Anxiety 1/3 PPS 60% Physical Exam Constitutional: no acute distress ENMT: Mouth: oral mucous membranes not dry no exudate Respiratory: normal respiratory effort; no labored breathing Cardiovascular: Extremities: no edema Gastrointestinal (Abdomen): LBM 7/3, soft formed Musculoskeletal: Extremities: extremities normal to inspection Neurologic: awake; not confused Psychiatric: Orientation: oriented x 3 Affect: euthymic affect Results & Data ([facility]) Vital Signs (Past 12 Hours) Vital Signs Temp Pulse Resp BP Pulse Ox 11/19/21 07:08 97.3 F L 95 H 18 95/63 L 100 PG Care Time/CCT Total # of Minutes Spent Total Time Spent: 80 Total Time Spent with Patient: Total time spent is greater than 50% in coordination of care (as documented) at patient's floor/unit and/or counseling patient: goals of care, code status, symptom management, patient education and support, coordination of care Coding Level of Care Code 71960 Initial Inpt Care Lvl 3 Diagnoses Pain R52 Dysgeusia R43.2 Diarrhea R19.7 Palliative care encounter Z51.5 Metastatic breast cancer C50.919
[2021-11-19] MEDS: ADVANCED PROBIOTIC 1250 MG CAPSULE PO SCH (13:29)
[2021-11-19] MEDS: AZITHROMYCIN 500 MG in DEXTROSE 5% 250 ML IV SCH (16:19)
[2021-11-19] MEDS: ENOXAPARIN INJ 40 MG/0.4 ML SYR SQ SCH (16:26)
[2021-11-19] MEDS: LACTATED RINGER'S 1,000 ML IV SCH (20:23)
--- NOTE | 2021-11-19 22:31 | Electrocardiogram Report ---
Test Reason : Blood Pressure : / mmHG Vent. Rate : 085 BPM Atrial Rate : 085 BPM P-R Int : 160 ms QRS Dur : 078 ms QT Int : 362 ms P-R-T Axes : 061 040 054 degrees QTc Int : 430 ms Normal sinus rhythm Nonspecific ST abnormality Abnormal ECG When compared with ECG of 28-JAN-2021 22:05, No significant change was found Confirmed by Lizandro Velásquez ([id number]) on 11/19/2021 10:31:04 PM Referred By: REFERRED SELF Confirmed By:Lizandro Velásquez
[2021-11-20] MEDS: PIPERACILLIN/TAZOBACTAM 3.375 GM in DEXTROSE 5% 100 ML IV SCH ×3 (02:29→18:20)
[2021-11-20] MEDS: LACTATED RINGER'S 1,000 ML IV SCH ×3 (02:34→19:12)
[2021-11-20 06:35] LABS: Basophils # (auto) 0.02 K/uL (0-0.2); Eosinophils # (auto) 0.02 K/uL (0-0.5); Hemoglobin 8.4 g/dL (12.0-16.0); Immature Granulocytes # (auto) 0.01 K/uL (0.00-0.02); Immature Granulocytes % (auto) 0.5 %; Lymphocytes # (auto) 0.38 K/uL (1.2-3.4); Lymphocytes % (auto) 18.6 %; Mean Corpuscular Hemoglobin 34.1 pg (25-34); Mean Corpuscular Hgb Conc 33.6 g/dL (32-36); Mean Corpuscular Volume 101.6 fL (80-100); Mean Platelet Volume 9.6 fL (7.4-10.4); Monocytes % (auto) 9.8 %; Neutrophils # (auto) 1.41 K/uL (1.4-6.5); Neutrophils % (auto) 69.1 %; Platelet Count 177 K/uL (130-400); RDW Coefficient of Variation 14.8 % (11.5-14.5); RDW Standard Deviation 55.5 fL (36.4-46.3); Red Blood Count 2.46 M/uL (4.2-5.4); White Blood Count 2.04 K/uL (4.8-10.8)
[2021-11-20 07:01] LABS: Albumin Globulin Ratio 0.9 (0.9-2); Albumin Level 2.7 gm/dl (3.4-5.0); Bilirubin,Total 0.3 mg/dl (0.2-1.0); Calcium 7.5 mg/dl (8.5-10.1); Creatinine Clr Calc Pharmacy 74.3 ml/min; Est GFR (African American) 108.5 ml/min; Est GFR (Non-African American) 93.7 ml/min; Phosphorus 1.8 mg/dl (2.5-4.9); Potassium 4.8 mmol/L (3.5-5.1); Total Protein 5.7 gm/dl (6.0-8.3)
[2021-11-20] MEDS: PSYLLIUM or GUAR GUM FIBER POWDER PACKET PO SCH ×2 (07:36→20:20)
[2021-11-20] MEDS: ONDANSETRON INJ 2 MG/ML 2 ML VIAL IV PRN (07:37)
[2021-11-20] MEDS: ADVANCED PROBIOTIC 1250 MG CAPSULE PO SCH (07:37)
[2021-11-20] MEDS: ONDANSETRON 4 MG OD TAB PO SCH ×2 (10:10→18:20)
--- NOTE | 2021-11-20 12:10 | Palliative Care Progress Note ---
Date of Service November 20, 2021 Assessment & Plan (1) Dysgeusia: Plan: She is experimenting with foods that are tolerable for her. She has associated concern about taking oral medications. Trying to minimize po medications as possible. (2) Pain: Plan: Left chest with pneumonia. Improving (3) Palliative care encounter: Plan: Lesia has decided that she does not want to continue cancer treatment at this time. She tells me that she called Dr. Stockton's office to let her know. She has an appointment to discuss this with Dr. Stockton next week. Her son, Luis, who is her POA, supports this. Her hope is to live as normal a life as possible for the time that she has. (4) Pneumonia: (5) Metastatic breast cancer: Admission and Anticipated Discharge Date Admission Date: November 17, 2021 Subjective Visiting with her son this morning. Denies pain. No prns last 24 hours. Review of Systems Review of Systems: ESAS Pain 0/3 Dyspnea 0/3 Nausea 0/3 Anxiety 1/3 PPS 60% Physical Exam Constitutional: no acute distress ENMT: Mouth: oral mucous membranes not dry Respiratory: normal respiratory effort; no labored breathing Cardiovascular: Extremities: no edema Musculoskeletal: Extremities: extremities normal to inspection Neurologic: moves all extremities and awake; not confused Psychiatric: Orientation: oriented x 3 Results & Data ([facility]) Vital Signs (Past 12 Hours) Vital Signs Temp Pulse Resp BP Pulse Ox 11/20/21 07:18 98.1 F 77 16 99/65 L 97 PG Care Time/CCT Total # of Minutes Spent Total Time Spent with Patient: Total time spent is greater than 50% in coordination of care (as documented) at patient's floor/unit and/or counseling patient: Coding Level of Care Code 17835 Subseq Hosp Care Lvl 2 Diagnoses Dysgeusia R43.2 Pain R52 Palliative care encounter Z51.5 Pneumonia J18.9 Metastatic breast cancer C50.919
[2021-11-20] MEDS: POT PHOSPHATE MONOBASIC W/ SOD TAB PO SCH ×3 (13:51→20:20)
--- NOTE | 2021-11-20 15:55 | Hospitalist Progress Note ---
Date of Service November 20, 2021 Assessment & Plan (1) Pneumonia: Plan: No reason to change antibiotics at present; sputum culture noted; await Legionella antigen (2) Diarrhea: Plan: C. difficile negative; supportive care (3) Metastatic breast cancer: Plan: Wants to stop active treatment and after discharge pursue palliative care f (4) DVT prophylaxis: Plan: High risk patient - Lovenox 40 mg SQ daily (5) Cytopenia: Plan: Noted leukopenia, anemiastill follow at present Plan: Soft blood pressure but asymptomaticcontinue volume Speech therapy consulted for some swallowing difficultydoes not seem mechanical at the current time Schedule Zofran for nausea Admission and Anticipated Discharge Date Admission Date: November 17, 2021 Subjective Follow-up of presentation with nausea, general ill health, cough, shortness of breathfeels better but still nausea; no abdominal pain; some nonspecific difficulty swallowing Physical Exam Physical Exam: Constitutional and general: No acute distress, looks biologic age Head and face: No puffiness, atraumatic Eyes: No scleral icterus, extraocular movements normal Neck: Supple, no JVD Musculoskeletal: No acute joint swelling, no bony abnormalities Skin/dermatologic/integument: No rash, no purpura Hematologic and lymphatic: pallor +, no petechia Gastrointestinal/abdomen: Nondistended, soft, nonacute Neurologic: Cranial nerves intact, nonfocal Psychiatry: Awake, alert, pleasant, communicative Cardiovascular: Heart rhythm regular, no rub, no murmur, no gallop Respiratory: Chest movements equal, no use of accessory muscles, no adventitious sounds Extremities: No edema, no cyanosis Results & Data Results & Data ([facility]) Vital Signs (Past 12 Hours) Vital Signs Temp Pulse Resp BP Pulse Ox 11/20/21 14:23 36.8 C 77 16 90/50 L 98 11/20/21 07:18 36.7 C 77 16 99/65 L 97 Laboratory Results Laboratory Results - last 24 hr 11/20/21 11/20/21 05:56 05:56 WBC 2.04 L RBC 2.46 L Hgb 8.4 L Hct 25.0 L MCV 101.6 H MCH 34.1 H MCHC 33.6 RDW Std Deviation 55.5 H RDW Coeff of Royer 14.8 H Plt Count 177 MPV 9.6 Immature Gran % (Auto) 0.5 Neut % (Auto) 69.1 Lymph % (Auto) 18.6 Hart % (Auto) 9.8 Eos % (Auto) 1.0 Baso % (Auto) 1.0 Neut # (Auto) 1.41 Lymph # (Auto) 0.38 L Hart # (Auto) 0.20 Eos # (Auto) 0.02 Baso # (Auto) 0.02 Immature Gran # (Auto) 0.01 Sodium 138 Potassium 4.8 Chloride 111 H Carbon Dioxide 22 Anion Gap 5 BUN 5 L Creatinine 0.60 Est Cr Clr Drug Dosing 74.3 Est GFR ( Amer) 108.5 Est GFR (Non-Af Amer) 93.7 Fasting Glucose 102 H Calcium 7.5 L Phosphorus 1.8 L Magnesium 2.0 Total Bilirubin 0.3 AST 20 ALT 25 Alkaline Phosphatase 59 Total Protein 5.7 L Albumin 2.7 L Globulin 3.0 Albumin/Globulin Ratio 0.9 PG Care Time/CCT Total # of Minutes Spent Total Time Spent with Patient: Total time spent is greater than 50% in coordination of care (as documented) at patient's floor/unit and/or counseling patient: Coding Level of Care Code 48021 Subseq Hosp Care Lvl 2 Diagnoses Pneumonia J18.9 Diarrhea R19.7 Metastatic breast cancer C50.919 DVT prophylaxis Z29.9 Cytopenia D75.9
[2021-11-20] MEDS: AZITHROMYCIN 500 MG in DEXTROSE 5% 250 ML IV SCH (16:55)
[2021-11-20] MEDS: ENOXAPARIN INJ 40 MG/0.4 ML SYR SQ SCH (16:55)
[2021-11-21] MEDS: ONDANSETRON 4 MG OD TAB PO SCH ×2 (01:50→10:02)
[2021-11-21] MEDS: PIPERACILLIN/TAZOBACTAM 3.375 GM in DEXTROSE 5% 100 ML IV SCH ×2 (01:50→10:01)
[2021-11-21] MEDS: LACTATED RINGER'S 1,000 ML IV SCH (05:09)
[2021-11-21 07:06] LABS: Basophils # (auto) 0.01 K/uL (0-0.2); Basophils % (auto) 0.6 %; Eosinophils # (auto) 0.03 K/uL (0-0.5); Eosinophils % (auto) 1.7 %; Hematocrit (blood only) 27.2 % (37-47); Hemoglobin 8.9 g/dL (12.0-16.0); Immature Granulocytes # (auto) 0.01 K/uL (0.00-0.02); Immature Granulocytes % (auto) 0.6 %; Lymphocytes # (auto) 0.34 K/uL (1.2-3.4); Lymphocytes % (auto) 19.8 %; Mean Corpuscular Hemoglobin 33.2 pg (25-34); Mean Corpuscular Hgb Conc 32.7 g/dL (32-36); Mean Corpuscular Volume 101.5 fL (80-100); Mean Platelet Volume 9.3 fL (7.4-10.4); Monocytes # (auto) 0.17 K/uL (0.11-0.59); Monocytes % (auto) 9.9 %; Neutrophils # (auto) 1.16 K/uL (1.4-6.5); Neutrophils % (auto) 67.4 %; Platelet Count 208 K/uL (130-400); RDW Standard Deviation 56.3 fL (36.4-46.3); Red Blood Count 2.68 M/uL (4.2-5.4); White Blood Count 1.72 K/uL (4.8-10.8)
[2021-11-21 07:22] LABS: Albumin Globulin Ratio 0.9 (0.9-2); Albumin Level 2.7 gm/dl (3.4-5.0); Bilirubin,Total 0.4 mg/dl (0.2-1.0); Calcium 7.9 mg/dl (8.5-10.1); Creatinine Clr Calc Pharmacy 76.9 ml/min; Est GFR (African American) 109.8 ml/min; Est GFR (Non-African American) 94.7 ml/min; Globulin 2.9 gm/dl (2.5-4.0); Magnesium 1.9 mg/dl (1.7-2.4); Phosphorus 2.4 mg/dl (2.5-4.9); Potassium 4.5 mmol/L (3.5-5.1); Total Protein 5.6 gm/dl (6.0-8.3)
[2021-11-21 07:45] VITALS: BP 113/74; PULSE 70; TEMP 98.1; O2SAT 97
[2021-11-21] MEDS ORDERED: MIDODRINE HCL 2.5 MG TAB PO SCH ×2 (08:00→12:00)
[2021-11-21] MEDS: ADVANCED PROBIOTIC 1250 MG CAPSULE PO SCH (08:05)
[2021-11-21] MEDS: POT PHOSPHATE MONOBASIC W/ SOD TAB PO SCH ×2 (08:08→12:00)
[2021-11-21] MEDS: PSYLLIUM or GUAR GUM FIBER POWDER PACKET PO SCH (08:08)
--- NOTE | 2021-11-21 12:19 | Discharge Summary ---
Date of Service November 21, 2021 Admission HPI Per Admitting Provider 66yo F w/ hx of metastatic breast cancer who presents with LLL PNA. The patient has been undergoing chemotherapy and radiation for her breast cancer. She is following with [facility] and was on Ibrance up to the time of her radiation for a rectal metastasis. She underwent her radiation therapy for 3 weeks. She believes that her last fraction was on October 29. She has not restarted her Ibrance. She reports that she just feels "off" and without an appetite. She reports that her appetite is low and she feels like her sense of smell is causing her to feel nauseated with any eating. She was in the ER on November 09 with similar symptoms and was given Augmentin. However, in the last 3 days, she feels she has actually felt worse with more shortness of breath and cough. She also notes that she had a fever to 100.7 at home which is new for her. She did not take her Augmentin today, but otherwise has been taking it faithfully. However, she has not been taking almost any of her other medications because she feels it is not helping her body Principal Diagnosis Possible right lower lobe pneumonia Discharge Exam Constitutional and general: No acute distress, looks biologic age Head and face: No puffiness, atraumatic Eyes: No scleral icterus, extraocular movements normal Neck: Supple, no JVD Musculoskeletal: No acute joint swelling, no bony abnormalities Skin/dermatologic/integument: No rash, no purpura Hematologic and lymphatic: pallor +, no petechia Gastrointestinal/abdomen: Nondistended, soft, nonacute Neurologic: Cranial nerves intact, nonfocal Psychiatry: Awake, alert, pleasant, communicative Cardiovascular: Heart rhythm regular, no rub, no murmur, no gallop Respiratory: Chest movements equal, no use of accessory muscles, no adventitious sounds; decreased breath sounds right Extremities: No edema, no cyanosis Vital Signs Temp Pulse Resp BP Pulse Ox 11/21/21 07:44 36.7 C 70 16 113/74 97 11/20/21 22:25 36.6 C 72 17 97/62 L 100 11/20/21 14:23 36.8 C 77 16 90/50 L 98 Intake and Output 11/20/21 11/21/21 11/21/21 22:59 06:59 14:59 Intake Total 1680 / 3361.667 1210 / 3361.667 315 / 315 Output Total 3 / 3 Balance 1677 / 3358.667 1210 / 3358.667 315 / 315 Intake: IV 1305 / 2886.667 1110 / 2886.667 315 / 315 Azithromycin 500 mg In Dextrose 255 / 255 5% 250 ml @ 125 mls/hr IV Q24H SANGEETA Rx#:[id number] Lactated Ringer's 1,000 ml @ 935 / 2286.667 995 / 2286.667 315 / 315 100 mls/hr IV .Q10H SANGEETA Rx#: [id number] Piperacillin/Tazobactam 3.375 115 / 345 115 / 345 gm In Dextrose 5% 100 ml @ 28. 75 mls/hr IV Q8H SANGEETA Rx#: [id number] Oral 375 / 475 100 / 475 Output: # Bowel Movements 3 / 3 Discharge Data Allergies Allergy/AdvReac Type Severity Reaction Status Date / Time No Known Allergies Allergy Unknown Verified 11/17/21 15:12 Consultations 11/17/21 14:44 Consult Palliative Care Routine 11/17/21 15:11 ED Decision to Admit Stat Ordered Studies 11/17/21 11:16 CT angio chest PE protocol Stat Hospital Course (1) Pneumonia: Doing well; can discharge on Omnicef (if if issue can use levofloxacin) (2) Diarrhea: C. difficile negative; supportive care (3) Metastatic breast cancer: Wants to stop active treatment and after discharge pursue palliative care -follow-up with palliative care and her oncology (4) Cytopenia: Noted leukopenia, anemiafollow-up with her oncologist (5) Nausea: Scheduled Zofran (6) Hypophosphatemia: Hypophosphatemia improvingfinish course of Neutra-Phos Low blood pressure but asymptomaticempiric low-dose midodrine Total Time Total Time Spent Total Time Spent (In Minutes): 40 Discharge Plan Discharge Items Patient Disposition: Home - Self-Care Reason For Visit: PNEUMONIA,FAILURE TO THRIVE Discharge Diagnosis: Suspected right lower lobe pneumonia Activity: As commented below Activity Comment: As tolerated Non-emergency contact: Primary Care Provider Call non-emergency contact if: your symptoms worsen Follow-up/Referrals: Jan Chavez DO [Primary Care Provider] - Natalya Gaxiola MD [Physician] - (In 1 to 2 weeks, seen in house) Chandni Stockton MD [Physician] - (As previously scheduled, otherwise in 1 week) Diet: Regular and Other - See Diet Comment Diet Comment: Alternate solids and liquids; upright only; single bites/small sips/slowly Addtl Attending Provider Instructions: Keep follow-up with your hematooncologist Pending Studies at Discharge: No Stand-Alone Forms: My [facility], Smoking Cessation Medications and DC Order Prescriptions: New Advanced Probiotic 625 mg (10 billion cell) Capsule 2 cap PO DAILY Qty: 14 RF: 0 Phospha 250 Neutral 250 mg Tablet 1 tab PO QID Qty: 4 RF: 0 ondansetron 4 mg Tablet,Disintegrating 4 mg PO Q8H Qty: 30 RF: 0 cefdinir 300 mg capsule 300 mg PO BID 7 Days Qty: 14 RF: 0 Psyllium Or Guar Gum Fiber Sup [Metamucil Or Nutrisource Fiber Supplement] 1 pkg PO BID Qty: 14 RF: 1 midodrine 2.5 mg Tablet 2.5 mg PO TID@0800,1200,1700 Qty: 90 RF: 0 Discontinued amoxicillin-pot clavulanate 875-125 mg tablet 1 tab PO BID Qty: 20 RF: 0 Discharge Orders: Discharge Order (Routine); Ordered 11/21/21 Ordered By: Ari Perales Admission Data Admit Date/Time: 11/17/21 14:43 Attending Provider: Ari Perales Admit Provider: Antony Chavez Primary Care Provider: Jan Chavez Other Providers: Natalya Gaxiola ; Antony Chavez Coding Level of Care Code D/C DAY MANAGEMENT >30 MINS Diagnoses Pneumonia J18.9 Diarrhea R19.7 Metastatic breast cancer C50.919 Cytopenia D75.9 Nausea R11.0 Hypophosphatemia E83.39
== END 2021-11-21 16:38 | disposition home or self-care (01) | DRG 194 ==
LOC: ED 09:39 → SUATTDRO 14:43 → 3E 14:43